=== PATIENT | female | born 1975 | race Hispanic/Latino ===

== ENCOUNTER 2020-08-12 13:03 | Emergency (ER) | payer OTHER ==
[2020-08-12] MEDS ORDERED: DIPHENHYDRAMINE 25 MG TAB/CAP ONE (14:48)
[2020-08-12] MEDS ORDERED: dexAMETHasone 10 MG/ML VIAL ONE (15:25)
[2020-08-12] MEDS ORDERED: FAMOTIDINE 20 MG TAB ONE (15:25)
--- NOTE | 2020-08-12 15:27 | EDPHYS ---
Physician Documentation [facility] Name: Catalina Whitehead Age: 45 yrs Sex: Female : 1975 Arrival Date: 08/12/2020 Time: 13:06 Bed 18 Private MD: ED Physician Fred Constantino HPI: 08/12 15:05 This 45 yrs old Female presents to ER via Ambulatory with complaints of pm1 Allergic Reaction. 15:05 The patient presents with rash, that is diffuse. Onset: The symptoms/episode pm1 began/occurred today. Associated signs and symptoms: Pertinent negatives: chest pain, dysphagia, nausea, shortness of breath, vomiting. Possible causes: hibiclens. At home the patient or guardian has treated the symptoms with Benadryl. Severity of symptoms: in the emergency department the symptoms are unchanged. The patient has not experienced similar symptoms in the past. 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 - Social history:: Smoking status: Patient denies any tobacco usage or history of. ROS: 15:05 Constitutional: Negative for fever, chills, and weight loss, ENT: Negative for injury, pm1 pain, and discharge, Neck: Negative for injury, pain, and swelling, Cardiovascular: Negative for chest pain, palpitations, and edema, Respiratory: Negative for shortness of breath, cough, wheezing, and pleuritic chest pain, Abdomen/GI: Negative for abdominal pain, nausea, vomiting, diarrhea, and constipation, Back: Negative for injury and pain, MS/Extremity: Negative for injury and deformity. 15:05 Neuro: Negative for headache, weakness, numbness, tingling, and seizure. 15:05 Skin: Positive for rash, diffusely. Exam: 15:05 Constitutional: This is a well developed, well nourished patient who is awake, alert, pm1 and in no acute distress. Head/Face: Normocephalic, atraumatic. 15:05 Back: No spinal tenderness. No costovertebral tenderness. Full range of motion. MS/ Extremity: Pulses equal, no cyanosis. Neurovascular intact. Full, normal range of motion. 15:05 Cardiovascular: Exam negative for acute changes, Rate: normal, Rhythm: regular, Pulses: no pulse deficits are appreciated. 15:05 Respiratory: Exam negative for acute changes, respiratory distress, shortness of breath. 15:05 Skin: consistent with urticaria, and is diffusely located. 15:05 Neuro: Orientation: is normal, Mentation: is normal, Motor: is normal, moves all fours. Vital Signs: 13:14 BP 129 / 62; Pulse 96; Resp 15; Temp 97.2(TE); Pulse Ox 99% on R/A; Weight 58.06 kg; ss Height 4 ft. 11 in. (149.86 cm); Pain 0/10; 16:03 BP 124 / 72; Pulse 69; Resp 16; Pulse Ox 99% ; Pain 0/10; ll1 13:14 Body Mass Index 25.85 (58.06 kg, 149.86 cm) ss MDM: 14:56 Patient medically screened. pm1 15:26 Data reviewed: vital signs. Data interpreted: Pulse oximetry: on room air is 99 %. pm1 Interpretation: normal. Counseling: I had a detailed discussion with the patient and/or guardian regarding: the historical points, exam findings, and any diagnostic results supporting the discharge/admit diagnosis, the need for outpatient follow up, to return to the emergency department if symptoms worsen or persist or if there are any questions or concerns that arise at home. Administered Medications: 14:36 Drug: Benadryl 25 mg Route: PO; ss 16:00 Follow up: Response: No adverse reaction; RASS: Alert and Calm (0) ll1 15:15 Drug: Decadron 10 mg Route: IM; Site: right gluteus; ll1 16:01 Follow up: Response: No adverse reaction; RASS: Alert and Calm (0) ll1 15:15 Drug: Pepcid 20 mg Route: PO; ll1 16:01 Follow up: Response: No adverse reaction; RASS: Alert and Calm (0) ll1 Disposition: 08/13 07:25 Co-signature as Attending Physician, Fred Constantino MD I agree with the assessment and jessica plan of care. Disposition: 08/12/20 15:27 Discharged to Home. Impression: Urticaria, unspecified. - Condition is Stable. - Discharge Instructions: Hives. - Prescriptions for Benadryl 25 mg Oral Capsule - take 1 capsule by ORAL route every 6 hours As needed; 30 tablet. Pepcid 20 mg Oral Tablet - take 1 tablet by ORAL route every 12 hours for 10 days; 20 tablet. Medrol ([place]) 4 mg Oral Tablets, Dose Pack - take 1 tablet by ORAL route as directed - follow package instructions; 1 packet. - Medication Reconciliation Form, Thank You Letter, Antibiotic Education, Prescription Opioid Use form. - Follow up: Emergency Department; When: As needed; Reason: Worsening of condition. Follow up: Private Physician; When: 2 - 3 days; Reason: Recheck today's complaints, Continuance of care, Re-evaluation by your physician. - Problem is new. - Symptoms have improved. Signatures: Fred Constantino MD MD cha Smirch, Shelby RN RN Ozzie Gray NP CLINIC ADMINISTRATOR pm1 Melody Chapa RN RN ll1 Corrections: (The following items were deleted from the chart) 08/12 16:05 15:27 08/12/2020 15:27 Discharged to Home. Impression: Urticaria, unspecified. ll1 Condition is Stable. Forms are Medication Reconciliation Form, Thank You Letter, Antibiotic Education, Prescription Opioid Use. Follow up: Emergency Department; When: As needed; Reason: Worsening of condition. Follow up: Private Physician; When: 2 - 3 days; Reason: Recheck today's complaints, Continuance of care, Re-evaluation by your physician. Problem is new. Symptoms have improved. pm1
--- NOTE | 2020-08-12 15:27 | ER ---
Nurse's Notes [facility] Name: Catalina Whitehead Age: 45 yrs Sex: Female : 1975 Arrival Date: 08/12/2020 Time: 13:06 Bed 18 Private MD: Diagnosis: Urticaria, unspecified Presentation: 08/12 13:14 Chief complaint: Patient states: Red, itchy rash that began at 1200 all over body. ss states that patient used Hibiclens at 1000 today and perhaps that may be what she is having a reaction to. Benadryl taken at 1230. Pt reports that the rash seems to be calming down some. Denies SOB. Coronavirus screen: Client denies travel out of the [place] in the last 14 days. Ebola Screen: Patient denies exposure to infectious person. Patient denies travel to an Ebola-affected area in the 21 days before illness onset. Onset: The symptoms/episode began/occurred 1.5 hour(s) ago. Anaphylaxis evaluation, no signs or symptoms of anaphylaxis were noted. Initial Sepsis Screen: Does the patient meet any 2 criteria? No. Patient's initial sepsis screen is negative. Does the patient have a suspected source of infection? No. Patient's initial sepsis screen is negative. Risk Assessment: Do you want to hurt yourself or someone else? Patient reports no desire to harm self or others. Onset of symptoms was August 12, 2020. 13:14 Method Of Arrival: Ambulatory ss 13:14 Acuity: DEBBIE 4 ss Triage Assessment: 16:04 General: Appears in no apparent distress. Behavior is calm, cooperative. 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 - Social history:: Smoking status: Patient denies any tobacco usage or history of. Screenin:03 Abuse screen: Denies threats or abuse. Nutritional screening: No deficits noted. ll1 Tuberculosis screening: No symptoms or risk factors identified. Fall Risk None identified. Total Herrera Fall Scale indicates No Risk (0-24 pts). Assessment: 16:03 Pain: Denies pain. Respiratory: Airway is patent Trachea midline Respiratory effort is ll1 even, unlabored, Respiratory pattern is regular, symmetrical, Breath sounds are clear bilaterally. Derm: Rash noted that is itchy, red, raised, urticaria, Reports rash all over, worse on back. Vital Signs: 13:14 BP 129 / 62; Pulse 96; Resp 15; Temp 97.2(TE); Pulse Ox 99% on R/A; Weight 58.06 kg; Height 4 ft. 11 in. (149.86 cm); Pain 0/10; 16:03 BP 124 / 72; Pulse 69; Resp 16; Pulse Ox 99% ; Pain 0/10; ll1 13:14 Body Mass Index 25.85 (58.06 kg, 149.86 cm) ED Course: 13:06 Patient arrived in ED. rg4 13:17 Triage completed. ss 13:18 Arm band placed on right wrist. ss 14:56 Ozzie Gray, LEE is PHCP. pm1 14:56 Fred Constantino MD is Attending Physician. pm1 15:07 Melody Chapa, KATY is Primary Nurse. ll1 16:04 Patient has correct armband on for positive identification. Bed in low position. Call ll1 light in reach. Side rails up X 1. Cardiac monitoring not applicable on this patient. 16:04 No provider procedures requiring assistance completed. Patient did not have IV access ll1 during this emergency room visit. Administered Medications: 14:36 Drug: Benadryl 25 mg Route: PO; 16:00 Follow up: Response: No adverse reaction; RASS: Alert and Calm (0) ll1 15:15 Drug: Decadron 10 mg Route: IM; Site: right gluteus; ll1 16:01 Follow up: Response: No adverse reaction; RASS: Alert and Calm (0) ll1 15:15 Drug: Pepcid 20 mg Route: PO; ll1 16:01 Follow up: Response: No adverse reaction; RASS: Alert and Calm (0) 1 Outcome: 15:27 Discharge ordered by . pm1 16:04 Discharged to home ambulatory. ll1 16:04 Condition: stable 16:04 Discharge instructions given to patient, Instructed on discharge instructions, follow up and referral plans. medication usage, Demonstrated understanding of instructions, follow-up care, medications, Prescriptions given X 3. 16:05 Patient left the ED. ll1 Signatures: Caroline Nichols RN RN Ozzie Gray, INDUSTRIAL MAINTENANCE ELECTRICIAN INDUSTRIAL MAINTENANCE ELECTRICIAN pm1 Marilee Franco rg4 Melody Chapa, RN RN ll1
[2020-08-12 17:23] VITALS: TEMP 97.2; O2SAT 99
[2020-08-12 17:24] VITALS: BP 124/72
== END 2020-08-12 16:05 | disposition home or self-care (01) ==
LOC: ER 13:03
DX: L50.9 Urticaria, unspecified (principal); Z88.1 Allergy status to other antibiotic agents; Z88.6 Allergy status to analgesic agent
CPT/HCPCS: 96372; 99283; J1100

== ENCOUNTER 2020-11-21 09:36 | Emergency (ER) | payer OTHER ==
--- OUTSIDE RECORDS SUMMARY | 2020-11-21 09:40 | XMS REPORT | Continuity of Care Document ---
:1975 Author Organization [facility] t Address [address] [place] [address] Care Team Providers Name Role Phone Lisa BULLARD Primary Care Physician Unavailable Lisa BULLARD Attending Clinician Unavailable Lisa BULLARD Admitting Clinician Unavailable Payers Payer Name Policy Type Policy Number Effective Date Expiration Date Radha [facility]VI[facility]O [facility] [id number] 2001 00:00:00 Problems This patient has no known problems. Allergies, Adverse Reactions, Alerts Allergy Allergy Status Severity Reaction(s) Onset Inactive Treating Comm ents Source Name Type Date Date Clinician ciproflo DA Active [facility] xacin 8-08 [place] 00:00: d 00 [facility] celecoxi DA Active [facility] b 8-08 [place] 00:00: d 00 [facility] HYDROCET DA Active [facility] 8[facility] [place] 00:00: d 00 [facility] ciproflo DA Active [facility] xacin 8-08 [place] HCl 00:00: d 00 [facility] Medications This patient has no known medications. Vital Signs Vital Name Observation Time Observation Value Comments Source WEIGHT 2020-06-20 13:27:00 57.9 kg Procedures This patient has no known procedures. Encounters Start End Encounter Admission Attending Care Care Encounter Source Date/Time Date/Time Type Type Clinicians Facility Department ID 2020-06-20 2020-06-20 Outpatient ROBERTH BULLARD MDA Jason/Hep/Nu [id number] 13:02:00 15:51:00 VINCE lilly 2020-06-17 2020-06-17 Outpatient ROBERTH BULLARD MDA MDA [id number] 11:28:11 11:28:11 VINCE lilly Results This patient has no known results.
--- NOTE | 2020-11-21 10:10 | ER ---
Nurse's Notes [facility] Name: Catalina Whitehead Age: 45 yrs Sex: Female : 1975 Arrival Date: 11/21/2020 Time: 09:39 Bed 26 Private MD: Diagnosis: Rash and other nonspecific skin eruption Presentation: 11/21 10:00 Chief complaint: Patient states: 11/14/2020, rash started on the nose bridge then ca1 gradually spread to cheeks. Reports a little discomfort on face. Red rash, flushed on jazmyne cheeks. Denies fever. Denies difficulty swallowing or breathing. Coronavirus screen: Client denies travel out of the [place] in the last 14 days. At this time, the client does not indicate any symptoms associated with coronavirus-19. Ebola Screen: Patient negative for fever greater than or equal to 101.5 degrees Fahrenheit, and additional compatible Ebola Virus Disease symptoms Patient denies exposure to infectious person. Patient denies travel to an Ebola-affected area in the 21 days before illness onset. No symptoms or risks identified at this time. Initial Sepsis Screen: Does the patient meet any 2 criteria? No. Patient's initial sepsis screen is negative. Does the patient have a suspected source of infection? No. Patient's initial sepsis screen is negative. Risk Assessment: Do you want to hurt yourself or someone else? Patient reports no desire to harm self or others. Onset of symptoms was November 14, 2020. 10:00 Method Of Arrival: Ambulatory ca1 10:00 Acuity: DEBBIE 4 ca1 Triage Assessment: 10:05 General: Appears in no apparent distress. comfortable, Behavior is calm, cooperative, ca1 appropriate for age. Pain: Denies pain. Neuro: Level of Consciousness is awake, alert, obeys commands, Oriented to person, place, time, situation. Derm: Skin is intact, is healthy with good turgor, Skin is pink, warm \\T\\ dry. Rash noted that is red, on right cheek and left cheek. Musculoskeletal: Circulation, motion, and sensation intact. Capillary refill < 3 seconds. 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 - Social history:: Smoking status: Patient denies any tobacco usage or history of. Screenin:06 Abuse screen: Denies threats or abuse. Denies injuries from another. Nutritional ca1 screening: No deficits noted. Tuberculosis screening: No symptoms or risk factors identified. Fall Risk None identified. Assessment: 10:06 Reassessment: see triage notes. Pain: Denies pain. ca1 10:33 Reassessment: Pt states, " I've had that shot in August, I know I will be alright. I ca1 am just going to leave now". Vital Signs: 10:00 BP 130 / 70; Pulse 93; Resp 16 S; Temp 97.7(TE); Pulse Ox 97% on R/A; Weight 60.33 kg ca1 (R); Height 4 ft. 11 in. (149.86 cm) (R); Pain 0/10; 10:00 Body Mass Index 26.86 (60.33 kg, 149.86 cm) ca1 ED Course: 09:39 Patient arrived in ED. as 09:49 Devika Hilliard, KATY is Primary Nurse. ca1 10:00 Fabienne Peralta FNP-C is PHCP. kb 10:00 Antoni Bray MD is Attending Physician. kb 10:03 Triage completed. ca1 10:05 Arm band placed on right wrist. ca1 10:06 Patient has correct armband on for positive identification. Bed in low position. Call ca1 light in reach. Side rails up X 1. Pulse ox on. NIBP on. 10:06 No provider procedures requiring assistance completed. Patient did not have IV access ca1 during this emergency room visit. Administered Medications: 10:32 Drug: SOLU-Medrol (methylPREDNISolone sodium succinate) 125 mg Route: IM; Site: left ca1 gluteus; 10:32 Follow up: Response: Medication administered at discharge. ca1 Outcome: 10:10 Discharge ordered by . kb 10:34 Discharged to home ambulatory. ca1 10:34 Condition: stable 10:34 Discharge instructions given to patient, Instructed on discharge instructions, follow up and referral plans. medication usage, Demonstrated understanding of instructions, follow-up care, medications, Prescriptions given X 2. 10:34 Patient left the ED. ca1 Signatures: Fabienne Peralta FNP-C FNP-Alisia Fuchs Cheryl, RN RN ca1
--- NOTE | 2020-11-21 10:10 | EDPHYS ---
Physician Documentation [facility] Name: Catalina Whitehead Age: 45 yrs Sex: Female : 1975 Arrival Date: 11/21/2020 Time: 09:39 Bed 26 Private MD: ED Physician Antoni Bray HPI: 11/21 10:08 This 45 yrs old Female presents to ER via Ambulatory with complaints of Rash, kb Facial Swelling. 10:08 The patient's rash thought to be caused by an unknown cause. The rash is located on the kb nose and right upper eyelid and left cheek and right cheek. The rash can be described as erythematous. Onset: The symptoms/episode began/occurred last week. Associated signs and symptoms: Pertinent positives: itching, "skin feels tight in the mornings". Severity of symptoms: At their worst the symptoms were mild moderate in the emergency department the symptoms are unchanged. Treatment given at home: OTC lotion/cream. The patient has not experienced similar symptoms in the past. The patient has not recently seen a physician. 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 - Social history:: Smoking status: Patient denies any tobacco usage or history of. ROS: 10:07 Constitutional: Negative for fever, chills, and weight loss, ENT: Negative for injury, kb pain, and discharge, Respiratory: Negative for shortness of breath, cough, wheezing, and pleuritic chest pain, Neuro: Negative for headache, weakness, numbness, tingling, and seizure. 10:07 Skin: Positive for rash, swelling, of the right upper eyelid, right cheek, nose and left cheek. Exam: 10:07 Constitutional: This is a well developed, well nourished patient who is awake, alert, kb and in no acute distress. Head/Face: Normocephalic, atraumatic. Respiratory: Respirations even and unlabored. No increased work of breathing, no retractions or nasal flaring. MS/ Extremity: Pulses equal, no cyanosis. Neurovascular intact. Full, normal range of motion. Neuro: Awake and alert, GCS 15, oriented to person, place, time, and situation. Moves all extremities. Normal gait. 10:07 Skin: rash a moderate rash is noted, rash can be described as erythematous, on the nose and right upper eyelid and left cheek and right cheek. Vital Signs: 10:00 BP 130 / 70; Pulse 93; Resp 16 S; Temp 97.7(TE); Pulse Ox 97% on R/A; Weight 60.33 kg ca1 (R); Height 4 ft. 11 in. (149.86 cm) (R); Pain 0/10; 10:00 Body Mass Index 26.86 (60.33 kg, 149.86 cm) ca1 MDM: 10:00 Patient medically screened. kb 10:07 Data reviewed: vital signs, nurses notes. Data interpreted: Pulse oximetry: on room air kb is 97 %. Interpretation: normal. 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 10:12 ED course: Educated to follow up with dermatology. Discussed possibility of rosacea. kb Administered Medications: 10:32 Drug: SOLU-Medrol (methylPREDNISolone sodium succinate) 125 mg Route: IM; Site: left ca1 gluteus; 10:32 Follow up: Response: Medication administered at discharge. ca1 Disposition: 16:05 Co-signature as Attending Physician, Antoni Bray MD I agree with the assessment and kdr plan of care. Disposition: 11/21/20 10:10 Discharged to Home. Impression: Rash and other nonspecific skin eruption. - Condition is Stable. - Discharge Instructions: Rash, [id number], Rosacea, [id number]. - Prescriptions for Prednisone 20 mg Oral Tablet - take 1 tablet by ORAL route once daily for 5 days; 5 tablet. Doxycycline Hyclate 100 mg Oral Tablet - take 1 tablet by ORAL route every 12 hours; 20 tablet. - Medication Reconciliation Form, Thank You Letter, Antibiotic Education, Prescription Opioid Use form. - Follow up: Emergency Department; When: As needed; Reason: Worsening of condition. Follow up: Private Physician; When: 2 - 3 days; Reason: Recheck today's complaints, Continuance of care, Re-evaluation by your physician. Signatures: Fabienne Peralta, KIMBERLY-C JUNIOR ACCOUNT EXECUTIVE-Antoni De Los Santos MD MD [facility] Devika Hilliard RN RN ca1 Corrections: (The following items were deleted from the chart) 10:34 10:10 11/21/2020 10:10 Discharged to Home. Impression: Rash and other nonspecific skin ca1 eruption. Condition is Stable. Forms are Medication Reconciliation Form, Thank You Letter, Antibiotic Education, Prescription Opioid Use. Follow up: Emergency Department; When: As needed; Reason: Worsening of condition. Follow up: Private Physician; When: 2 - 3 days; Reason: Recheck today's complaints, Continuance of care, Re-evaluation by your physician. kb
[2020-11-21 10:45] VITALS: BP 130/70; TEMP 97.7; O2SAT 97
[2020-11-21] MEDS ORDERED: METHYLPREDNISOLONE 125 MG INJ ONE (10:48)
== END 2020-11-21 10:34 | disposition home or self-care (01) ==
LOC: ER 09:36
DX: R21 Rash and other nonspecific skin eruption (principal)
CPT/HCPCS: 96372; 99283; J2930

== ENCOUNTER 2023-01-19 23:12 | Emergency (ER) | payer OTHER ==
--- OUTSIDE RECORDS SUMMARY | 2023-01-19 23:16 | XMS REPORT | Continuity of Care Document ---
:1975 Author Organization [facility] t Address [address] [place] [id number] Care Team Providers Name Role Phone Mckenna Jones MD Primary Care Physician [phone] TRAVIS VÁZQUEZ Attending Clinician Unavailable Moises Cruz MD Attending Clinician Jarrett Asencio Attending Clinician Unavailable VINCE BULLARD Attending Clinician Unavailable TRAVIS VÁZQUEZ Admitting Clinician Unavailable Jarrett Asencio Admitting Clinician Unavailable VINCE BULLARD Admitting Clinician Unavailable Physician, No Primary or Family Admitting Clinician Unavaila ble Payers Payer Name Policy Type Policy Number Effective Date Expiration Date Radha TREVIÑO O [id number] 2001 00:00:00 Problems This patient has no known problems. Allergies, Adverse Reactions, Alerts Allergy Allergy Status Severity Reaction(s) Onset Inactive Treating Comm ents Source Name Type Date Date Clinician NIACIN DRUG Active Low Other 2021-0 MD INGREDI 4-07 Anderso 00:00: n 00 NIACIN DRUG Active Low Other 2021-0 MD INGREDI 4-07 Anderso 00:00: n 00 NIACIN DRUG Active Low Other 2021-0 MD INGREDI 4-07 Anderso 00:00: n 00 NIACIN DRUG Active Low Other 2021-0 MD INGREDI 4-07 Anderso 00:00: n 00 NIACIN DRUG Active Low Other 2022-0 MD INGREDI 4-07 Anderso 00:00: n 00 NIACIN DRUG Active Low Other 2022-0 MD INGREDI 4-07 Anderso 00:00: n 00 NIACIN DRUG Active Low Other 2022-0 MD INGREDI 4-07 Anderso 00:00: n 00 NIACIN DRUG Active Low Other 2022-0 MD INGREDI 4-07 Anderso 00:00: n 00 NIACIN DRUG Active Low Other 2022-0 MD INGREDI 4-07 Anderso 00:00: n 00 NIACIN DRUG Active Low Other 2022-0 MD INGREDI 4-07 Anderso 00:00: n 00 NIACIN DRUG Active Low Other 2022-0 MD INGREDI 4-07 Anderso 00:00: n 00 NIACIN DRUG Active Low Other 2022-0 MD INGREDI 4-07 Anderso 00:00: n 00 NIACIN DRUG Active Low Other 2022-0 MD INGREDI 4-07 Anderso 00:00: n 00 NIACIN DRUG Active Low Other 2022-0 MD INGREDI 4-07 Anderso 00:00: n 00 Niacin Propensi Active Other (See 202-0 Burning Met hodi ty to Comments) -[address] adverse 00:00: on Hospita reaction 00 joints.Bu l s to rning drug sensation on joints. NIACIN DRUG Active Low Other 2-0 MD INGREDI 4-07 Anderso 00:00: n 00 NIACIN DRUG Active Low Other 2-0 MD INGREDI 4-07 Anderso 00:00: n 00 NIACIN DRUG Active Low Other 2022-0 MD INGREDI 4-07 Anderso 00:00: n 00 NIACIN DRUG Active Low Other 2022-0 MD INGREDI 4-07 Anderso 00:00: n 00 NIACIN DRUG Active Low Other 2022-0 MD INGREDI 4-07 Anderso 00:00: n 00 NIACIN DRUG Active Low Other 2022-0 MD INGREDI 4-07 Anderso 00:00: n 00 NIACIN DRUG Active Low Other 2022-0 MD INGREDI 4-07 Anderso 00:00: n 00 NIACIN DRUG Active Low Other 2022-0 MD INGREDI 4-07 Anderso 00:00: n 00 NIACIN DRUG Active Low Other 2022-0 MD INGREDI 4-07 Anderso 00:00: n 00 NIACIN DRUG Active Low Other 2022-0 MD INGREDI 4-07 Anderso 00:00: n 00 NIACIN DRUG Active Low Other 2022-0 MD INGREDI 4-07 Anderso 00:00: n 00 NIACIN DRUG Active Low Other 2022-0 MD INGREDI 4-07 Anderso 00:00: n 00 NIACIN DRUG Active Low Other 2022-0 MD INGREDI 4-07 Anderso 00:00: n 00 NIACIN DRUG Active Low Other 2022-0 MD INGREDI 4-07 Anderso 00:00: n 00 NIACIN DRUG Active Low Other 2022-0 MD INGREDI 4-07 Anderso 00:00: n 00 NIACIN DRUG Active Low Other 2022-0 MD INGREDI 4-07 Anderso 00:00: n 00 NIACIN DRUG Active Low Other 2022-0 MD INGREDI 4-07 Anderso 00:00: n 00 NIACIN DRUG Active Low Other 2-0 MD INGREDI 4-07 Anderso 00:00: n 00 NIACIN DRUG Active Low Other 2-0 MD INGREDI 4-07 Anderso 00:00: n 00 NIACIN DRUG Active Low Other 2-0 MD INGREDI 4-07 Anderso 00:00: n 00 NIACIN DRUG Active Low Other 2-0 MD INGREDI 4-07 Anderso 00:00: n 00 NIACIN DRUG Active Low Other 2-0 MD INGREDI 4-07 Anderso 00:00: n 00 NIACIN DRUG Active Low Other 2-0 MD INGREDI 4-07 Anderso 00:00: n 00 NIACIN DRUG Active Low Other 2022-0 MD INGREDI 4-07 Anderso 00:00: n 00 NIACIN DRUG Active Low Other 2022-0 MD INGREDI 4-07 Anderso 00:00: n 00 NIACIN DRUG Active Low Other 2022-0 MD INGREDI 4-07 Anderso 00:00: n 00 NIACIN DRUG Active Low Other 2022-0 MD INGREDI 4-07 Anderso 00:00: n 00 NIACIN DRUG Active Low Other 2022-0 MD INGREDI 4-07 Anderso 00:00: n 00 CHLORHEX DRUG Active High Itching 2021-0 MD IDINE INGREDI 1-18 Anderso GLUCONAT 00:00: n E 00 CHLORHEX DRUG Active High Itching 2021-0 MD IDINE INGREDI 1-18 Anderso GLUCONAT 00:00: n E 00 CHLORHEX DRUG Active High Itching 2021-0 MD IDINE INGREDI 1-18 Anderso GLUCONAT 00:00: n E 00 CHLORHEX DRUG Active High Itching 2021-0 MD IDINE INGREDI 1-18 Anderso GLUCONAT 00:00: n E 00 CHLORHEX DRUG Active High Itching 2021-0 MD IDINE INGREDI 1-18 Anderso GLUCONAT 00:00: n E 00 CHLORHEX DRUG Active High Itching 2021-0 MD IDINE INGREDI 1-18 Anderso GLUCONAT 00:00: n E 00 CHLORHEX DRUG Active High Itching 2021-0 MD IDINE INGREDI 1-18 Anderso GLUCONAT 00:00: n E 00 CHLORHEX DRUG Active High Itching 2021-0 MD IDINE INGREDI 1-18 Anderso GLUCONAT 00:00: n E 00 CHLORHEX DRUG Active High Itching 2021-0 MD IDINE INGREDI 1-18 Anderso GLUCONAT 00:00: n E 00 CHLORHEX DRUG Active High Itching 2021-0 MD IDINE INGREDI 1-18 Anderso GLUCONAT 00:00: n E 00 CHLORHEX DRUG Active High Itching 2021-0 MD IDINE INGREDI 1-18 Anderso GLUCONAT 00:00: n E 00 CHLORHEX DRUG Active High Itching 2021-0 MD IDINE INGREDI 1-18 Anderso GLUCONAT 00:00: n E 00 CHLORHEX DRUG Active High Itching 2021-0 MD IDINE INGREDI 1-18 Anderso GLUCONAT 00:00: n E 00 CHLORHEX DRUG Active High Itching 2021-0 MD IDINE INGREDI 1-18 Anderso GLUCONAT 00:00: n E 00 CHLORHEX DRUG Active High Itching 2021-0 MD IDINE INGREDI 1-18 Anderso GLUCONAT 00:00: n E 00 CHLORHEX DRUG Active High Itching 2021-0 MD IDINE INGREDI 1-18 Anderso GLUCONAT 00:00: n E 00 CHLORHEX DRUG Active High Itching 2021-0 MD IDINE INGREDI 1-18 Anderso GLUCONAT 00:00: n E 00 CHLORHEX DRUG Active High Itching 2021-0 MD IDINE INGREDI 1-18 Anderso GLUCONAT 00:00: n E 00 CHLORHEX DRUG Active High Itching 2021-0 MD IDINE INGREDI 1-18 Anderso GLUCONAT 00:00: n E 00 CHLORHEX DRUG Active High Itching 2021-0 MD IDINE INGREDI 1-18 Anderso GLUCONAT 00:00: n E 00 CHLORHEX DRUG Active High Itching 2021-0 MD IDINE INGREDI 1-18 Anderso GLUCONAT 00:00: n E 00 CHLORHEX DRUG Active High Itching 2021-0 MD IDINE INGREDI 1-18 Anderso GLUCONAT 00:00: n E 00 CHLORHEX DRUG Active High Itching 2021-0 MD IDINE INGREDI 1-18 Anderso GLUCONAT 00:00: n E 00 CHLORHEX DRUG Active High Itching 2021-0 MD IDINE INGREDI 1-18 Anderso GLUCONAT 00:00: n E 00 CHLORHEX DRUG Active High Itching 2021-0 MD IDINE INGREDI 1-18 Anderso GLUCONAT 00:00: n E 00 CHLORHEX DRUG Active High Itching 2021-0 MD IDINE INGREDI 1-18 Anderso GLUCONAT 00:00: n E 00 CHLORHEX DRUG Active High Itching 2021-0 MD IDINE INGREDI 1-18 Anderso GLUCONAT 00:00: n E 00 CHLORHEX DRUG Active High Itching 2021-0 MD IDINE INGREDI 1-18 Anderso GLUCONAT 00:00: n E 00 CHLORHEX DRUG Active High Itching 2021-0 MD IDINE INGREDI 1-18 Anderso GLUCONAT 00:00: n E 00 CHLORHEX DRUG Active High Itching 2021-0 MD IDINE INGREDI 1-18 Anderso GLUCONAT 00:00: n E 00 CHLORHEX DRUG Active High Itching 2021-0 MD IDINE INGREDI 1-18 Anderso GLUCONAT 00:00: n E 00 CHLORHEX DRUG Active High Itching 2021-0 MD IDINE INGREDI 1-18 Anderso GLUCONAT 00:00: n E 00 CHLORHEX DRUG Active High Itching 2021-0 MD IDINE INGREDI 1-18 Anderso GLUCONAT 00:00: n E 00 CHLORHEX DRUG Active High Itching 2021-0 MD IDINE INGREDI 1-18 Anderso GLUCONAT 00:00: n E 00 CHLORHEX DRUG Active High Itching 2021-0 MD IDINE INGREDI 1-18 Anderso GLUCONAT 00:00: n E 00 CHLORHEX DRUG Active High Itching 2021-0 MD IDINE INGREDI 1-18 Anderso GLUCONAT 00:00: n E 00 CHLORHEX DRUG Active High Itching 2021-0 MD IDINE INGREDI 1-18 Anderso GLUCONAT 00:00: n E 00 CHLORHEX DRUG Active High Itching 2021-0 MD IDINE INGREDI 1-18 Anderso GLUCONAT 00:00: n E 00 CHLORHEX DRUG Active High Itching 2021-0 MD IDINE INGREDI 1-18 Anderso GLUCONAT 00:00: n E 00 CHLORHEX DRUG Active High Itching 2021-0 MD IDINE INGREDI 1-18 Anderso GLUCONAT 00:00: n E 00 CHLORHEX DRUG Active High Itching 2021-0 MD IDINE INGREDI 1-18 Anderso GLUCONAT 00:00: n E 00 CHLORHEX DRUG Active High Itching 2021-0 MD IDINE INGREDI 1-18 Anderso GLUCONAT 00:00: n E 00 Chlorhex Propensi Active Itching 2020-0 Metho di idine ty to 08-28 st adverse 00:00: Hospita reaction 00 l s to drug Hydrocod Propensi Active Other (See 2017-0 Me thodi one-Acet ty to Comments) 08-29 st aminophe adverse 00:00: Hospita n reaction 00 l s to drug CELECOXI DRUG Active Med Rash 2015-0 B INGREDI 2-05 Anderso 00:00: n 00 CIPROFLO DRUG Active Low Nausea 2015-0 MD AKHTAR INGREDI 2-05 Anderso 00:00: n 00 HYDROCOD DRUG Active Low Hives 2015-0 MD PATRICIO INGREDI 2-05 Anderso 00:00: n 00 PROPOXYP DRUG Active Low Hives 2015-0 MD HENE 2-05 Anderso N-ACETAM 00:00: n INOPHEN 00 CELECOXI DRUG Active Med Rash 2016-0 MD B INGREDI 2-05 Anderso 00:00: n 00 CIPROFLO DRUG Active Low Nausea 2016-0 MD XACIN INGREDI 2-05 Anderso 00:00: n 00 HYDROCOD DRUG Active Low Hives 2015- MD ONE INGREDI 2-05 Anderso 00:00: n 00 PROPOXYP DRUG Active Low Hives 2015-0 MD HENE 2-05 Anderso N-ACETAM 00:00: n INOPHEN 00 CELECOXI DRUG Active Med Rash 2015- MD B INGREDI 2-05 Anderso 00:00: n 00 CIPROFLO DRUG Active Low Nausea 2015- MD XACIN INGREDI 2-05 Anderso 00:00: n 00 HYDROCOD DRUG Active Low Hives 2015- MD ONE INGREDI 2-05 Anderso 00:00: n 00 PROPOXYP DRUG Active Low Hives 2015-0 MD HENE 2-05 Anderso N-ACETAM 00:00: n INOPHEN 00 CELECOXI DRUG Active Med Rash 2016- MD B INGREDI 2-05 Anderso 00:00: n 00 CIPROFLO DRUG Active Low Nausea 2016-0 MD XACIN INGREDI 2-05 Anderso 00:00: n 00 HYDROCOD DRUG Active Low Hives 2015-0 MD ONE INGREDI 2-05 Anderso 00:00: n 00 PROPOXYP DRUG Active Low Hives 2015-0 MD HENE 2-05 Anderso N-ACETAM 00:00: n INOPHEN 00 CELECOXI DRUG Active Med Rash 2016-0 MD B INGREDI 2-05 Anderso 00:00: n 00 CIPROFLO DRUG Active Low Nausea 2015-0 MD XACIN INGREDI 2-05 Anderso 00:00: n 00 HYDROCOD DRUG Active Low Hives 2015-0 MD ONE INGREDI 2-05 Anderso 00:00: n 00 PROPOXYP DRUG Active Low Hives 2015-0 MD HENE 2-05 Anderso N-ACETAM 00:00: n INOPHEN 00 CELECOXI DRUG Active Med Rash 2016-0 MD B INGREDI 2-05 Anderso 00:00: n 00 CIPROFLO DRUG Active Low Nausea 2016-0 MD XACIN INGREDI 2-05 Anderso 00:00: n 00 HYDROCOD DRUG Active Low Hives 2016-0 MD ONE INGREDI 2-05 Anderso 00:00: n 00 PROPOXYP DRUG Active Low Hives 2015-0 MD HENE 2-05 Anderso N-ACETAM 00:00: n INOPHEN 00 CELECOXI DRUG Active Med Rash 2016-0 MD B INGREDI 2-05 Anderso 00:00: n 00 CIPROFLO DRUG Active Low Nausea 2016-0 MD XACIN INGREDI 2-05 Anderso 00:00: n 00 HYDROCOD DRUG Active Low Hives 2015-0 MD ONE INGREDI 2-05 Anderso 00:00: n 00 PROPOXYP DRUG Active Low Hives 2015-0 MD HENE 2-05 Anderso N-ACETAM 00:00: n INOPHEN 00 CELECOXI DRUG Active Med Rash 2016-0 MD B INGREDI 2-05 Anderso 00:00: n 00 CIPROFLO DRUG Active Low Nausea 2015-0 MD XACIN INGREDI 2-05 Anderso 00:00: n 00 HYDROCOD DRUG Active Low Hives 2015-0 MD ONE INGREDI 2-05 Anderso 00:00: n 00 PROPOXYP DRUG Active Low Hives 2015-0 MD HENE 2-05 Anderso N-ACETAM 00:00: n INOPHEN 00 CELECOXI DRUG Active Med Rash 2016-0 MD B INGREDI 2-05 Anderso 00:00: n 00 CIPROFLO DRUG Active Low Nausea 2016-0 MD XACIN INGREDI 2-05 Anderso 00:00: n 00 HYDROCOD DRUG Active Low Hives 2015-0 MD ONE INGREDI 2-05 Anderso 00:00: n 00 PROPOXYP DRUG Active Low Hives 2015-0 MD HENE 2-05 Anderso N-ACETAM 00:00: n INOPHEN 00 CELECOXI DRUG Active Med Rash 2016-0 MD B INGREDI 2-05 Anderso 00:00: n 00 CIPROFLO DRUG Active Low Nausea 2015-0 MD XACIN INGREDI 2-05 Anderso 00:00: n 00 HYDROCOD DRUG Active Low Hives 2015-0 MD ONE INGREDI 2-05 Anderso 00:00: n 00 PROPOXYP DRUG Active Low Hives 2015-0 MD HENE 2-05 Anderso N-ACETAM 00:00: n INOPHEN 00 CELECOXI DRUG Active Med Rash 2016-0 MD B INGREDI 2-05 Anderso 00:00: n 00 CELECOXI DRUG Active Med Rash 2016-0 MD B INGREDI 2-05 Anderso 00:00: n 00 CIPROFLO DRUG Active Low Nausea 2016-0 MD XACIN INGREDI 2-05 Anderso 00:00: n 00 HYDROCOD DRUG Active Low Hives 2015-0 MD ONE INGREDI 2-05 Anderso 00:00: n 00 PROPOXYP DRUG Active Low Hives 2015- MD HENE 2-05 Anderso N-ACETAM 00:00: n INOPHEN 00 CELECOXI DRUG Active Med Rash 2015- MD B INGREDI 2-05 Anderso 00:00: n 00 CIPROFLO DRUG Active Low Nausea 2015-0 MD XACIN INGREDI 2-05 Anderso 00:00: n 00 HYDROCOD DRUG Active Low Hives 2015- MD ONE INGREDI 2-05 Anderso 00:00: n 00 CIPROFLO DRUG Active Low Nausea 2015-0 MD XACIN INGREDI 2-05 Anderso 00:00: n 00 PROPOXYP DRUG Active Low Hives 2015-0 MD HENE 2-05 Anderso N-ACETAM 00:00: n INOPHEN 00 CELECOXI DRUG Active Med Rash 2016-0 MD B INGREDI 2-05 Anderso 00:00: n 00 CIPROFLO DRUG Active Low Nausea 2015-0 MD XACIN INGREDI 2-05 Anderso 00:00: n 00 HYDROCOD DRUG Active Low Hives 2015-0 MD ONE INGREDI 2-05 Anderso 00:00: n 00 PROPOXYP DRUG Active Low Hives 2015-0 MD HENE 2-05 Anderso N-ACETAM 00:00: n INOPHEN 00 CELECOXI DRUG Active Med Rash 2016-0 MD B INGREDI 2-05 Anderso 00:00: n 00 HYDROCOD DRUG Active Low Hives 2015-0 MD ONE INGREDI 2-05 Anderso 00:00: n 00 CIPROFLO DRUG Active Low Nausea 2015-0 MD XACIN INGREDI 2-05 Anderso 00:00: n 00 HYDROCOD DRUG Active Low Hives 2015-0 MD ONE INGREDI 2-05 Anderso 00:00: n 00 PROPOXYP DRUG Active Low Hives 2015-0 MD HENE 2-05 Anderso N-ACETAM 00:00: n INOPHEN 00 CELECOXI DRUG Active Med Rash 2016-0 MD B INGREDI 2-05 Anderso 00:00: n 00 CIPROFLO DRUG Active Low Nausea 2015- MD XACIN INGREDI 2-05 Anderso 00:00: n 00 HYDROCOD DRUG Active Low Hives 2015- MD ONE INGREDI 2-05 Anderso 00:00: n 00 PROPOXYP DRUG Active Low Hives 2015- MD HENE 2-05 Anderso N-ACETAM 00:00: n INOPHEN 00 CELECOXI DRUG Active Med Rash 2015- MD B INGREDI 2-05 Anderso 00:00: n 00 CIPROFLO DRUG Active Low Nausea 2015- MD XACIN INGREDI 2-05 Anderso 00:00: n 00 HYDROCOD DRUG Active Low Hives 2015- MD ONE INGREDI 2-05 Anderso 00:00: n 00 PROPOXYP DRUG Active Low Hives 2015- MD HENE 2-05 Anderso N-ACETAM 00:00: n INOPHEN 00 CELECOXI DRUG Active Med Rash 2015- MD B INGREDI 2-05 Anderso 00:00: n 00 CIPROFLO DRUG Active Low Nausea 2015- MD XACIN INGREDI 2-05 Anderso 00:00: n 00 HYDROCOD DRUG Active Low Hives 2015- MD ONE INGREDI 2-05 Anderso 00:00: n 00 PROPOXYP DRUG Active Low Hives 2015-0 MD HENE 2-05 Anderso N-ACETAM 00:00: n INOPHEN 00 PROPOXYP DRUG Active Low Hives 2015- MD HENE 2-05 Anderso N-ACETAM 00:00: n INOPHEN 00 CELECOXI DRUG Active Med Rash 2015- MD B INGREDI 2-05 Anderso 00:00: n 00 CIPROFLO DRUG Active Low Nausea 2015- MD XACIN INGREDI 2-05 Anderso 00:00: n 00 HYDROCOD DRUG Active Low Hives 2015- MD ONE INGREDI 2-05 Anderso 00:00: n 00 PROPOXYP DRUG Active Low Hives 2016-0 MD HENE 2-05 Anderso N-ACETAM 00:00: n INOPHEN 00 CELECOXI DRUG Active Med Rash 2016-0 MD B INGREDI 2-05 Anderso 00:00: n 00 CIPROFLO DRUG Active Low Nausea 2016-0 MD XACIN INGREDI 2-05 Anderso 00:00: n 00 HYDROCOD DRUG Active Low Hives 2016-0 MD ONE INGREDI 2-05 Anderso 00:00: n 00 PROPOXYP DRUG Active Low Hives 2015-0 MD HENE 2-05 Anderso N-ACETAM 00:00: n INOPHEN 00 CELECOXI DRUG Active Med Rash 2016-0 MD B INGREDI 2-05 Anderso 00:00: n 00 CIPROFLO DRUG Active Low Nausea 2015-0 MD XACIN INGREDI 2-05 Anderso 00:00: n 00 HYDROCOD DRUG Active Low Hives 2015-0 MD ONE INGREDI 2-05 Anderso 00:00: n 00 PROPOXYP DRUG Active Low Hives 2015-0 MD HENE 2-05 Anderso N-ACETAM 00:00: n INOPHEN 00 CELECOXI DRUG Active Med Rash 2016-0 MD B INGREDI 2-05 Anderso 00:00: n 00 CELECOXI DRUG Active Med Rash 2016-0 MD B INGREDI 2-05 Anderso 00:00: n 00 CIPROFLO DRUG Active Low Nausea 2016-0 MD XACIN INGREDI 2-05 Anderso 00:00: n 00 HYDROCOD DRUG Active Low Hives 2015-0 MD ONE INGREDI 2-05 Anderso 00:00: n 00 PROPOXYP DRUG Active Low Hives 2015-0 MD HENE 2-05 Anderso N-ACETAM 00:00: n INOPHEN 00 CELECOXI DRUG Active Med Rash 2016-0 MD B INGREDI 2-05 Anderso 00:00: n 00 CIPROFLO DRUG Active Low Nausea 2016-0 MD XACIN INGREDI 2-05 Anderso 00:00: n 00 HYDROCOD DRUG Active Low Hives 2015-0 MD ONE INGREDI 2-05 Anderso 00:00: n 00 CIPROFLO DRUG Active Low Nausea 2016-0 MD XACIN INGREDI 2-05 Anderso 00:00: n 00 PROPOXYP DRUG Active Low Hives 2015-0 MD HENE 2-05 Anderso N-ACETAM 00:00: n INOPHEN 00 CELECOXI DRUG Active Med Rash 2016-0 MD B INGREDI 2-05 Anderso 00:00: n 00 CIPROFLO DRUG Active Low Nausea 2016-0 MD XACIN INGREDI 2-05 Anderso 00:00: n 00 HYDROCOD DRUG Active Low Hives 2015- MD ONE INGREDI 2-05 Anderso 00:00: n 00 PROPOXYP DRUG Active Low Hives 2015-0 MD HENE 2-05 Anderso N-ACETAM 00:00: n INOPHEN 00 CELECOXI DRUG Active Med Rash 2016- MD B INGREDI 2-05 Anderso 00:00: n 00 HYDROCOD DRUG Active Low Hives 2015- MD ONE INGREDI 2-05 Anderso 00:00: n 00 CIPROFLO DRUG Active Low Nausea 2015- MD XACIN INGREDI 2-05 Anderso 00:00: n 00 HYDROCOD DRUG Active Low Hives 2015- MD ONE INGREDI 2-05 Anderso 00:00: n 00 PROPOXYP DRUG Active Low Hives 2015- MD HENE 2-05 Anderso N-ACETAM 00:00: n INOPHEN 00 CELECOXI DRUG Active Med Rash 2015- MD B INGREDI 2-05 Anderso 00:00: n 00 CIPROFLO DRUG Active Low Nausea 2015-0 MD XACIN INGREDI 2-05 Anderso 00:00: n 00 HYDROCOD DRUG Active Low Hives 2015- MD ONE INGREDI 2-05 Anderso 00:00: n 00 PROPOXYP DRUG Active Low Hives 2015-0 MD HENE 2-05 Anderso N-ACETAM 00:00: n INOPHEN 00 CELECOXI DRUG Active Med Rash 2016-0 MD B INGREDI 2-05 Anderso 00:00: n 00 CIPROFLO DRUG Active Low Nausea 2015-0 MD XACIN INGREDI 2-05 Anderso 00:00: n 00 HYDROCOD DRUG Active Low Hives 2015-0 MD ONE INGREDI 2-05 Anderso 00:00: n 00 PROPOXYP DRUG Active Low Hives 2015-0 MD HENE 2-05 Anderso N-ACETAM 00:00: n INOPHEN 00 CELECOXI DRUG Active Med Rash 2016-0 MD B INGREDI 2-05 Anderso 00:00: n 00 CIPROFLO DRUG Active Low Nausea 2016- MD XACIN INGREDI 2-05 Anderso 00:00: n 00 HYDROCOD DRUG Active Low Hives 2015-0 MD ONE INGREDI 2-05 Anderso 00:00: n 00 PROPOXYP DRUG Active Low Hives 2015- MD HENE 2-05 Anderso N-ACETAM 00:00: n INOPHEN 00 PROPOXYP DRUG Active Low Hives 2015- MD HENE 2-05 Anderso N-ACETAM 00:00: n INOPHEN 00 CELECOXI DRUG Active Med Rash 2015- MD B INGREDI 2-05 Anderso 00:00: n 00 CIPROFLO DRUG Active Low Nausea 2015- MD XACIN INGREDI 2-05 Anderso 00:00: n 00 HYDROCOD DRUG Active Low Hives 2015- MD ONE INGREDI 2-05 Anderso 00:00: n 00 PROPOXYP DRUG Active Low Hives 2015- MD HENE 2-05 Anderso N-ACETAM 00:00: n INOPHEN 00 CELECOXI DRUG Active Med Rash 2015- MD B INGREDI 2-05 Anderso 00:00: n 00 CIPROFLO DRUG Active Low Nausea 2015- MD XACIN INGREDI 2-05 Anderso 00:00: n 00 HYDROCOD DRUG Active Low Hives 2015- MD ONE INGREDI 2-05 Anderso 00:00: n 00 PROPOXYP DRUG Active Low Hives 2015- MD HENE 2-05 Anderso N-ACETAM 00:00: n INOPHEN 00 CELECOXI DRUG Active Med Rash 2016-0 MD B INGREDI 2-05 Anderso 00:00: n 00 CIPROFLO DRUG Active Low Nausea 2015- MD XACIN INGREDI 2-05 Anderso 00:00: n 00 HYDROCOD DRUG Active Low Hives 2015- MD ONE INGREDI 2-05 Anderso 00:00: n 00 PROPOXYP DRUG Active Low Hives 2015- MD HENE 2-05 Anderso N-ACETAM 00:00: n INOPHEN 00 CELECOXI DRUG Active Med Rash 2015- MD B INGREDI 2-05 Anderso 00:00: n 00 CIPROFLO DRUG Active Low Nausea 2016-0 MD XACIN INGREDI 2-05 Anderso 00:00: n 00 HYDROCOD DRUG Active Low Hives 2015-0 MD ONE INGREDI 2-05 Anderso 00:00: n 00 PROPOXYP DRUG Active Low Hives 2015-0 MD HENE 2-05 Anderso N-ACETAM 00:00: n INOPHEN 00 CELECOXI DRUG Active Med Rash 2016-0 MD B INGREDI 2-05 Anderso 00:00: n 00 CIPROFLO DRUG Active Low Nausea 2015-0 MD XACIN INGREDI 2-05 Anderso 00:00: n 00 HYDROCOD DRUG Active Low Hives 2015- MD ONE INGREDI 2-05 Anderso 00:00: n 00 PROPOXYP DRUG Active Low Hives 2015-0 MD HENE 2-05 Anderso N-ACETAM 00:00: n INOPHEN 00 CELECOXI DRUG Active Med Rash 2015- MD B INGREDI 2-05 Anderso 00:00: n 00 CIPROFLO DRUG Active Low Nausea 2015-0 MD XACIN INGREDI 2-05 Anderso 00:00: n 00 HYDROCOD DRUG Active Low Hives 2015-0 MD ONE INGREDI 2-05 Anderso 00:00: n 00 PROPOXYP DRUG Active Low Hives 2015-0 MD HENE 2-05 Anderso N-ACETAM 00:00: n INOPHEN 00 CELECOXI DRUG Active Med Rash 2016-0 MD B INGREDI 2-05 Anderso 00:00: n 00 CIPROFLO DRUG Active Low Nausea 2015-0 MD XACIN INGREDI 2-05 Anderso 00:00: n 00 HYDROCOD DRUG Active Low Hives 2015-0 MD ONE INGREDI 2-05 Anderso 00:00: n 00 PROPOXYP DRUG Active Low Hives 2015-0 MD HENE 2-05 Anderso N-ACETAM 00:00: n INOPHEN 00 CELECOXI DRUG Active Med Rash 2016-0 MD B INGREDI 2-05 Anderso 00:00: n 00 CIPROFLO DRUG Active Low Nausea 2015-0 MD XACIN INGREDI 2-05 Anderso 00:00: n 00 HYDROCOD DRUG Active Low Hives 2015-0 MD ONE INGREDI 2-05 Anderso 00:00: n 00 PROPOXYP DRUG Active Low Hives 2015-0 MD HENE 2-05 Anderso N-ACETAM 00:00: n INOPHEN 00 CELECOXI DRUG Active Med Rash 2016- MD B INGREDI 2-05 Anderso 00:00: n 00 CIPROFLO DRUG Active Low Nausea 2016-0 MD XACIN INGREDI 2-05 Anderso 00:00: n 00 HYDROCOD DRUG Active Low Hives 2015- MD ONE INGREDI 2-05 Anderso 00:00: n 00 PROPOXYP DRUG Active Low Hives 2015- MD HENE 2-05 Anderso N-ACETAM 00:00: n INOPHEN 00 CELECOXI DRUG Active Med Rash 2015- MD B INGREDI 2-05 Anderso 00:00: n 00 CIPROFLO DRUG Active Low Nausea 2015- MD XACIN INGREDI 2-05 Anderso 00:00: n 00 HYDROCOD DRUG Active Low Hives 2015- MD ONE INGREDI 2-05 Anderso 00:00: n 00 PROPOXYP DRUG Active Low Hives 2015- MD HENE 2-05 Anderso N-ACETAM 00:00: n INOPHEN 00 CELECOXI DRUG Active Med Rash 2015- MD B INGREDI 2-05 Anderso 00:00: n 00 CIPROFLO DRUG Active Low Nausea 2015- MD XACIN INGREDI 2-05 [facility] 00:00: n 00 HYDROCOD DRUG Active Low Hives 2015- MD ONE INGREDI 2-05 Anderso 00:00: n 00 PROPOXYP DRUG Active Low Hives 2015- MD HENE 2-05 Anderso N-ACETAM 00:00: n INOPHEN 00 CELECOXI DRUG Active Med Rash 2016-0 MD B INGREDI 2-05 Anderso 00:00: n 00 CIPROFLO DRUG Active Low Nausea 2015- MD XACIN INGREDI 2-05 [facility] 00:00: n 00 HYDROCOD DRUG Active Low Hives 2015- MD ONE INGREDI 2-05 Anderso 00:00: n 00 PROPOXYP DRUG Active Low Hives 2015- MD HENE 2-05 Anderso N-ACETAM 00:00: n INOPHEN 00 CELECOXI DRUG Active Med Rash 2015- MD B INGREDI 2-05 Anderso 00:00: n 00 CIPROFLO DRUG Active Low Nausea MD AKHTAR INGREDI 09-15 Anderso 00:00: n 00 HYDROCOD DRUG Active Low Hives SHENG INGREDI 09-15 Anderso 00:00: n 00 PROPOXYP DRUG Active Low Hives MD IVERSON 09-15 Anderso N-ACETAM 00:00: n INOPHEN 00 Propoxyp Propensi Active Rash Method i hene ty to 09-15 st N-Acetam adverse 00:00: Hospita inophen reaction 00 l s to drug Celecoxi Propensi Active Rash Bleeding Meth axel b ty to 09-15 st adverse 00:00: Hospita reaction 00 l s to drug Ciproflo Propensi Active GI Nausea Method i xacin ty to Intolerance 09-15 adverse 00:00: Hospita reaction 00 l s to drug Hydrocod Propensi Active Rash Method i one ty to 09-15 adverse 00:00: Hospita reaction 00 l s to drug ciproflo DA Active [facility] xacin 8-08 [place] HCl 00:00: d 00 [facility] ciproflo DA Active [facility] xacin 8-08 [place] 00:00: d 00 [facility] celecoxi DA Active [place] [facility] b 8-08 [place] 00:00: d 00 [facility] HYDROCET DA Active U DONT [facility] REMEMBER 8 [place] 00:00: d 00 [facility] ciproflo DA Active U TOLD HER [facility] xacin 8-08 [place] HCl 00:00: d 00 [facility] ciproflo DA Active U [facility] TOLD [facility] xacin 8-08 [place] 00:00: d 00 [facility] celecoxi DA Active MO [facility] b 8-08 [place] [facility]: [facility] Social History Social Habit Start Date Stop Date Quantity Comments Source Gender identity [facility] Alcohol intake 2022-05-28 2022-05-28 Current drinker [facility] 00:00:00 00:00:00 of alcohol Hospital (finding) History of Social 2022-05-28 2022-05-[address] function 00:00:00 00:00:00 Hospital Tobacco use and 2022-05-28 2022-05-28 Smokeless [facility] 00:00:00 00:00:00 tobacco non-user [facility] Sex [facility] [birth year] [facility] Smoking Status Start Date Stop Date Source Never smoked tobacco [facility] Medications Ordered Filled Start Stop Current Ordering Indication Dosage Frequency Signature Comments Components Source Medication Medication Date Date Medication? Clinician (SIG) Name Name ascorbic 2021-08 Yes 100mg Take 1 [facility] acid, 0-[address] vitamin C, 13:10: (100 mg [facility] (VITAMIN C) 29 total) by l 100 MG mouth. tablet levothyroxi 2021-08 Yes 112ug QD Take 1 [facility] h[facility] ne 0-[address] (SYNTHROID) 13:10: (112 mcg [facility] 112 mcg 29 total) by l tablet mouth daily. co-enzyme 2021-08 Yes 100mg Take 3 [facility] di Q-10 30 mg 0-[address] capsule 13:10: (90 mg Hospita 29 total) by l mouth. ascorbic 2021-08 Yes 100mg Take 1 Method i acid, 0-[address] vitamin C, 13:10: (100 mg [facility]osp [facility]leen (VITAMIN C) 29 total) by l 100 MG mouth. tablet levothyroxi 2021-08 Yes 112ug QD Take 1 Met hodi ne 0-[address] (SYNTHROID) 13:10: (112 mcg Ho spita 112 mcg 29 total) by l tablet mouth daily. co-enzyme 2021-08 Yes 100mg Take 3 Metho di Q-10 30 mg 0-[address] capsule 13:10: (90 mg Hospita 29 total) by l mouth. estradioL Yes Method[facility] (ESTRACE) 2 9-22 st MG tablet 00:00: Hospita 00 l estradioL Yes [facility] (ESTRACE) 2 9-22 st MG tablet 00:00: Hospita 00 l Oracea 40 Yes [facility] mg capsule 9-16 st 00:00: Hospita 00 l Oracea 40 0 Yes [facility] mg capsule 9-16 st 00:00: Hospita 00 l biotin 2021-0 3- No 1000ug Chew 1,000 Me thodi 1,000 mcg 8- 08-[address] tablet,chew 00:00: 04:59 Hospi ta able 00 :00 l cyanocobala 2021-0 2022- No 500ug Take 1 Me thodi min 04-[address] (VITAMIN 00:00: 04:59 (500 mcg [facility]osp [facility] B-12) 500 00 :00 total) by l MCG tablet mouth. fexofenadin 2021-0 2022- No 180mg Take 1 Me thodi e (ROSS) 04-[address] 180 MG 00:00: 04:59 (180 mg Hospita tablet 00 :00 total) by l mouth. biotin 2021-0 202- No 1000ug Chew 1,000 Me thodi 1,000 mcg 04-[address] tablet,chew 00:00: 04:59 Hospi ta able 00 :00 l cyanocobala 2021-0 2022- No 500ug Take 1 Me thodi min 04-[address] (VITAMIN 00:00: 04:59 (500 mcg Hosp coleen B-12) 500 00 :00 total) by l MCG tablet mouth. fexofenadin 0 2022- No 180mg Take 1 Me thodi e (ROSS) 04-[address] 180 MG 00:00: 04:59 (180 mg Hospita tablet 00 :00 total) by l mouth. polyethylen Yes Use as Meth axel e 4-[address] glycol-elec 00:00: by Hospit a trolytes 00 ordering l (NULYTELY) provider. 420 gram solution polyethylen Yes Use as Meth axel e 4-[address] glycol-elec 00:00: by Hospit a trolytes 00 ordering l (NULYTELY) provider. 420 gram solution metFORMIN Yes 500mg Take 1 Metho di (GLUMETZA) 3-[address] 500 mg 24 00:00: (500 mg Hospi ta hr tablet 00 total) by l mouth. metFORMIN 0 Yes 500mg Take 1 Metho di (GLUMETZA) 3-[address] 500 mg 24 00:00: (500 mg Hospi ta hr tablet 00 total) by l mouth. liothyronin Yes Take by Met hodi e (CYTOMEL) 2-[address] 5 MCG 00:00: Hospita tablet 00 l liothyronin Yes Take by Met hodi e (CYTOMEL) 2-[address] 5 MCG 00:00: Hospita tablet 00 l testosteron 2018-08 Yes 1{appli Apply 1 Methodi e 1.62 % 0-03 cation} applicatio st (20.25 00:00: n Hospita mg/1.25 00 topically. l gram) gel in packet test2018-08 Yes Apply 1 Met hodi e 1.62 % 0-[address] (20.25 00:00: n Hospita mg/1.25 00 topically. l gram) gel in packet Vital Signs Vital Name Observation Time Observation Value Comments Source WEIGHT 2020-06-20 13:27:00 57.9 kg Systolic blood 2022-05-28 18:08:00 144 mm[Hg] [facility] pressure Diastolic blood 2022-05-28 18:08:00 84 mm[Hg] [facility] Hospital pressure Heart rate 2022-05-28 18:08:00 80 /min [facility] Body height 2022-05-28 18:08:00 152.4 cm [facility] Body weight 2022-05-28 18:08:00 63.504 kg [facility] BMI 2022-05-28 18:08:00 27.34 kg/m2 [facility] Procedures This patient has no known procedures. Plan of Care Planned Activity Planned Date Details Comments Source Future Scheduled 2023-01-19 Screening for [facility] Test 23:03:59 malignant neoplasm of colon (procedure) [code = 672513897] Future Scheduled 2023-01-19 Scre[facility] Test 23:03:59 malignant neoplasm of colon (procedure) [code = 090251431] Future Scheduled 2023-01-19 Scre[facility] Test 23:03:59 malignant neoplasm of colon (procedure) [code = 973702683] Future Scheduled 2023-01-19 COVID-19 VACCINE (#1) [facility] Test 23:03:59 [code = COVID-19 VACCINE (#1)] Future Scheduled 2023-01-19 Hepatitis C screening [facility] Test 23:03:59 (procedure) [code = 045956531] Future Scheduled 2023-01-19 Screening for [facility] Test 23:03:59 malignant neoplasm of cervix (procedure) [code = 789250651] Future Scheduled 2023-01-19 BREAST CANCER [facility] Test 23:03:59 SCREENING [code = BREAST CANCER SCREENING] Future Scheduled 2023-01-19 Screening for [facility] Test 23:03:59 malignant neoplasm of colon (procedure) [code = 060708670] Future Scheduled 2023-01-19 Screening for [facility] Test 23:03:59 malignant neoplasm of colon (procedure) [code = 969896044] Future Scheduled 2023-01-19 INFLUENZA VACCINE [facility] 23:03:59 [code = INFLUENZA VACCINE] Future Scheduled 2022-10-16 COVID-19 VACCINE (#1) [facility] Test 20:39:50 [code = COVID-19 VACCINE (#1)] Future Scheduled 2022-10-16 Hepatitis C screening [facility] Test 20:39:50 (procedure) [code = 580313939] Future Scheduled 2022-10-16 Screening for [facility] Test 20:39:50 malignant neoplasm of cervix (procedure) [code = 084984443] Future Scheduled 2022-10-16 BREAST CANCER [facility] Test 20:39:50 SCREENING [code = BREAST CANCER SCREENING] Future Scheduled 2022-10-16 COLONOSCOPY SCREENING [facility] Test 20:39:50 [code = COLONOSCOPY SCREENING] Future Scheduled 2022-10-16 INFLUENZA VACCINE [facility] Test 20:39:50 [code = INFLUENZA VACCINE] Encounters Start End Encounter Admission Attending Care Care Encounter Source Date/Time Date/Time Type Type Clinicians Facility Department ID 2021-09-13 Outpatient MDA MDA [id number] 17:48:13 Anderso n 2021-09-13 Outpatient MDA MDA [id number] 17:48:13 Anderso n 2021-09-13 Outpatient MDA MDA [id number] 17:48:13 Anderso n 2021-09-13 Outpatient MDA MDA [id number] 17:48:12 Anderso n 2021-09-13 Outpatient MDA MDA [id number] 17:31:50 Anderso n 2021-09-13 Outpatient MDA MDA [id number] 17:27:40 Anderso n 2021-09-13 Outpatient MDA MDA [id number] 17:21:51 Anderso n 2022-12-05 2022-12-05 Outpatient EL [place]AG[place] MDA Jason/Hep/Nu [id number] 08:31:00 12:45:00 hardy IQBAL Gera so TRAVIS n 2022-12-04 2022-12-04 Outpatient EL MDA MDA [id number] 08:32:10 08:32:10 Deniz o n 2022-05-28 2022-05-28 Office Moises Cruz 1.2.840.1 [id number] [facility] 13:15:00 13:45:[address] 3.430.2.7 Hospit a .3.728198 l .8 2022-05-28 2022-05-28 Office Moises Cruz 1.2.840.1 [id number] [facility] 13:15:00 13:45:[address] 3.430.2.7 Hospit a .3.530486 l .8 2022-05-28 2022-05-28 Travel 1.2.840.1 [id number] [id number] [facility] 00:00:00 00:00:[address] 3.430.2.7 0.2.7.3.698 Ho spita .3.530699 084.8 l .8 2022-05-28 2022-05-28 Travel 1.2.840.1 1.2.841.942 [id number] [facility] 00:00:00 00:00:[address] 3.430.2.7 0.2.7.3.698 Ho spita .3.688768 084.8 l .8 2022-05-01 2022-05-01 Outpatient [facility] [id number] [facility] 12:00:00 12:00:00 Jarrett Jon [facility] 2021-11-16 2021-11-16 Outpatient EL BULLARD, MDA Jason/Hep/Nu [id number] 08:55:00 12:40:00 VINCE lilly 2021-11-15 2021-11-15 Outpatient EL BULLARD, MDA MDA [id number] 08:35:38 08:35:38 VINCE lilly 2021-11-14 2021-11-14 Outpatient EL BULLARD, MDA MDA [id number] 12:07:44 12:15:05 VINCE lilly 2021-10-22 2021-10-22 Outpatient EL Luis M, HCAPM ELIZABET [id number] [facility] 12:00:00 12:00:00 Jarrett 58 [facility] 2021-06-02 2021-06-02 Outpatient EL Luis M, HCAPM ELIZABET [id number] [facility] 12:00:00 12:00:00 Jarrett Anabelle [facility] 2020-06-20 2020-06-20 Outpatient EL BULLARD, MDA Jason/Hep/Nu [id number] 13:02:00 15:51:00 VINCE lilly 2020-06-17 2020-06-17 Outpatient EL BULLARD, MDA MDA [id number] 11:28:11 11:28:11 VINCE lilly 2020-05-11 2020-05-11 Outpatient EL Luis M, HCAPM ELIZABET [id number] [facility] 12:00:00 12:00:00 Jarrett 00 [facility] Results This patient has no known results.
[2023-01-20] MEDS ORDERED: MORPHINE 2 MG/ML SYR ONE (00:37)
[2023-01-20] MEDS ORDERED: KETOROLAC 30 MG/ML INJ ONE (00:38)
[2023-01-20 00:49] LABS: Absolute Lymphocytes (CBC) 2.8 K/uL (0.7-4.9); Hematocrit 38.3 % (36.0-45.0); Lymphocytes % 21.9 % (15.3-44.8); MCV 91.4 fL (80-100); MPV 7.4 fL (7.6-11.3); RBC Red Blood Cell Count 4.19 M/uL (3.86-4.86)
[2023-01-20 01:01] LABS: ALT/SGPT 21 U/L (13-56); AST/SGOT 10 U/L (15-37); Albumin 3.2 g/dL (3.4-5.0); Alkaline Phosphatase 92 U/L (45-117); BUN Blood Urea Nitrogen 13 mg/dL (7-18); Bicarbonate 28 mEq/L (21-32); Bilirubin Total 0.2 mg/dL (0.2-1.0); Glomerular Filtration Rate 98 ml/min (=/>90); Glucose Level 113 mg/dL (74-106); Potassium 3.2 mEq/L (3.5-5.1); Protein, Total 7.3 g/dL (6.4-8.2); Sodium Level 139 mEq/L (136-145)
[2023-01-20 01:06] LABS: Specific Gravity > 1.030 (1.005-1.030); Troponin High Sensitivity < 3.0 pg/mL (<58.9); Urine Bacteria None Seen /HPF (<20); Urine Bilirubin NEGATIVE (Negative); Urine Blood Negative (Negative); Urine Clarity Clear (Clear); Urine Color Yellow (Yellow); Urine Glucose NEGATIVE (Negative); Urine Mucus 3+ /HPF (None Seen); Urine Protein TRACE (Negative); Urine RBC <5 /HPF (None Seen); Urine Urobilinogen Normal (Normal)
--- NOTE | 2023-01-20 03:30 | ER ---
Nurse's Notes [facility] Name: Catalina hWitehead Age: 47 yrs Sex: Female : 1975 Arrival Date: 01/19/2023 Time: 23:12 Bed 14 Private MD: Diagnosis: Low back pain Presentation: 01/19 23:20 Chief complaint: Patient states: right flank pain of 10 that radiates to RUQ and right pf1 shoulder/back,onset at 1000 this AM. patient denies any N/V/d. 23:20 Coronavirus screen: Vaccine status: Patient reports receiving the 2nd dose of the covid pf1 vaccine. Jebbit Client denies travel out of the [place] in the last 14 days. At this time, the client does not indicate any symptoms associated with coronavirus-19. Ebola Screen: Patient negative for fever greater than or equal to 101.5 degrees Fahrenheit, and additional compatible Ebola Virus Disease symptoms. Initial Sepsis Screen: Does the patient meet any 2 criteria? No. Patient's initial sepsis screen is negative. Does the patient have a suspected source of infection? No. Patient's initial sepsis screen is negative. Risk Assessment: Do you want to hurt yourself or someone else? Patient reports no desire to harm self or others. 23:20 Method Of Arrival: Ambulatory pf1 23:20 Acuity: DEBBIE 3 pf1 Screenin:20 [facility] ED Fall Risk Assessment (Adult) History of falling in the last 3 months, pf1 including since admission No falls in past 3 months (0 pts) Confusion or Disorientation No (0 pts) Intoxicated or Sedated No (0 pts) Impaired Gait No (0 pts) Mobility Assist Device Used No (0 pt) Altered Elimination No (0 pt) Score/Fall Risk Level 0 - 2 = Low Risk Oriented to surroundings, Maintained a safe environment, Educated pt \T\ family on fall prevention, incl call for assistance when getting out of bed, Assessed \T\ reinforced patient's understanding of fall precautions, Provided non-skid footwear, Hourly rounding (assess needs \T\ fall precautionary measures) done, Used ambulatory aids as needed (educated on \T\ assisted with), Used gait belt as appropriate. 23:20 Abuse screen: Denies threats or abuse. Nutritional screening: No deficits noted. pf1 Tuberculosis screening: No symptoms or risk factors identified. Assessment: 23:20 General: Appears in no apparent distress. uncomfortable, well groomed, well developed, pf1 Behavior is calm, cooperative, appropriate for age, quiet. 23:20 Pain: Complains of pain in right flank pain that radiates to RUQ and right pf1 shoudler/back pain,onset 2 days with mild SOB due to pain Pain currently is 10 out of 10 on a pain scale. Neuro: No deficits noted. Level of Consciousness is awake, alert, obeys commands, Oriented to person, place, time, situation. Cardiovascular: Capillary refill < 3 seconds Patient's skin is warm and dry. Respiratory: Reports shortness of breath at rest with pain Airway is patent Trachea midline Respiratory effort is even, unlabored, Respiratory pattern is regular, symmetrical, Breath sounds are clear bilaterally. GI: No deficits noted. No signs and/or symptoms were reported involving the gastrointestinal system. GI: No deficits noted. Abdomen is flat, non-distended, Bowel sounds present X 4 quads. Reports upper abdominal pain, with right flank pain. : No signs and/or symptoms were reported regarding the genitourinary system. EENT: No deficits noted. No signs and/or symptoms were reported regarding the EENT system. Derm: No deficits noted. No signs and/or symptoms reported regarding the dermatologic system. 01/20 00:20 Reassessment: Patient appears in no apparent distress at this time. Patient and/or pf1 family updated on plan of care and expected duration. Pain level reassessed. Patient is alert, oriented x 3, equal unlabored respirations, skin warm/dry/pink. Patient states symptoms have improved. 01:30 Reassessment: Patient appears in no apparent distress at this time. Patient and/or pf1 family updated on plan of care and expected duration. Pain level reassessed. Patient is alert, oriented x 3, equal unlabored respirations, skin warm/dry/pink. Patient states feeling better. Patient states symptoms have improved. 02:30 Reassessment: Patient appears in no apparent distress at this time. Patient and/or pf1 family updated on plan of care and expected duration. Pain level reassessed. Patient is alert, oriented x 3, equal unlabored respirations, skin warm/dry/pink. Patient states feeling better. Patient states symptoms have improved. Vital Signs: 01/19 23:20 BP 114 / 69; Pulse 84; Resp 18; Temp 98.9; Pulse Ox 99% on R/A; Weight 60.78 kg; Height pf1 5 ft. 0 in. ; Pain 10; 01/20 00:30 BP 118 / 76; Pulse 71; Resp 16; Pulse Ox 97% on R/A; Pain 4/10; pf1 01:30 BP 112 / 62; Pulse 73; Resp 18; Pulse Ox 97% on R/A; pf1 02:30 BP 110 / 61; Pulse 72; Resp 19; Pulse Ox 97% on R/A; pf1 03:46 BP 115 / 60; kl 01/19 23:20 Body Mass Index 26.17 (60.78 kg, 152.4 cm) pf1 01/19 23:20 Pain Scale: Adult pf1 01/20 00:30 Pain Scale: Adult pf1 ED Course: 01/19 23:16 Patient arrived in ED. es 23:20 Patient has correct armband on for positive identification. Placed in gown. Bed in low pf1 position. Call light in reach. 23:32 Jesus Alonzo MD is Attending Physician. bs3 01/20 00:10 Rocio Aparicio RN is Primary Nurse. pf1 00:27 Urinalysis w/ reflexes Sent. bc6 00:27 CBC with Diff Sent. bc6 00:27 Troponin HS Sent. bc6 00:27 Inserted saline lock: 22 gauge in right antecubital area, using aseptic technique. bc6 01:12 XRAY Chest (1 view) In Process Unspecified. EDMS 01:55 Triage completed. pf1 02:38 CT Aorta for Dissection In Process Unspecified. EDMS 03:45 No provider procedures requiring assistance completed. IV discontinued, intact, kl bleeding controlled, No redness/swelling at site. Pressure dressing applied. Administered Medications: 00:40 Drug: Ketorolac IVP 15 mg Route: IVP; Site: right antecubital; pf1 01:40 Follow up: Response: No adverse reaction; Marked relief of symptoms; Pain is decreased pf1 00:40 Drug: morphine IVP or IV 2 mg Route: IVP; Infused Over: 4 mins; Site: right antecubital;pf1 01:40 Follow up: Response: No adverse reaction; Marked relief of symptoms; Pain is decreased; pf1 RASS: Alert and Calm (0) Outcome: 03:30 Discharge ordered by MD. hurst 03:45 Discharged to home ambulatory, with family. bola 03:45 Condition: improved 03:45 Discharge instructions given to patient, Instructed on discharge instructions, follow up and referral plans. medication usage, Demonstrated understanding of instructions, follow-up care, medications, Prescriptions given X 2. 03:46 Patient left the ED. Signatures: Dispatcher [employer] Caro Baker RN RN bola Ron, Jesus Phan MD MD bs3 Rocio Aparicio RN RN pf1 Danielle Bardales [facility]
--- NOTE | 2023-01-20 03:31 | EDPHYS ---
Physician Documentation [facility] Name: Catalina Whitehead Age: 47 yrs Sex: Female : 1975 Arrival Date: 01/19/2023 Time: 23:12 Bed 14 Private MD: ED Physician Jesus Alonzo HPI: 01/20 01:24 This 47 yrs old Female presents to ER via Unassigned with complaints of bs3 Breathing Difficulty, Back Pain. 01:24 47-year-old no past medical history presents with back pain today it is a sharp pain bs3 that she has never had before she feels like sometimes it goes into her abdomen nothing seems to make it better or worse although laying down makes it worse no associated shortness of breath no cough no abdominal pain no nausea no vomiting she tried tyyi-lpt-hicwymz medicine without relief. ROS: 01:34 Constitutional: Negative for fever, chills bs3 01:34 All other systems are negative. Exam: 01:34 Constitutional: This is a well developed, well nourished patient who is awake, alert, bs3 and in mild distress Head/Face: Normocephalic, atraumatic. Eyes: Pupils equal round and reactive to light, extra-ocular motions intact. Lids and lashes normal. ENT: mmm, no posterior phyarngeal erythema Neck: Trachea midline, no thyromegaly, no neck stiffness Chest/axilla: Normal chest wall appearance and motion. Nontender with no deformity. No lesions are appreciated. Cardiovascular: Regular rate and rhythm with a normal S1 and S2. symmetric pulses in upper extremities Respiratory: Lungs have equal breath sounds bilaterally, clear to auscultation, no respiratory distress Abdomen/GI: Soft, non-tender, no rebound or guarding Back: No spinal tenderness. No costovertebral tenderness. Full range of motion. Skin: Warm, dry with normal turgor. Normal color with no rashes, no lesions, and no evidence of cellulitis. MS/ Extremity: Pulses equal, no cyanosis. Neurovascular intact. Full, normal range of motion. Neuro: Awake and alert, GCS 15, oriented to person, place, time, and situation. Cranial nerves II-XII grossly intact. Motor strength 5/5 in all extremities. Sensory grossly intact. Vital Signs: 01/19 23:20 BP 114 / 69; Pulse 84; Resp 18; Temp 98.9; Pulse Ox 99% on R/A; Weight 60.78 kg; Height pf1 5 ft. 0 in. ; Pain 10; 01/20 00:30 BP 118 / 76; Pulse 71; Resp 16; Pulse Ox 97% on R/A; Pain 4/10; pf1 01:30 BP 112 / 62; Pulse 73; Resp 18; Pulse Ox 97% on R/A; pf1 02:30 BP 110 / 61; Pulse 72; Resp 19; Pulse Ox 97% on R/A; pf1 03:46 BP 115 / 60; kl 01/19 23:20 Body Mass Index 26.17 (60.78 kg, 152.4 cm) pf1 01/19 23:20 Pain Scale: Adult pf1 01/20 00:30 Pain Scale: Adult pf1 MDM: 01/19 23:32 Patient medically screened. 3 01/20 01:34 Differential diagnosis: Anemia Anxiety Reaction asthma, Pneumothorax reactive airway bs3 disease, Unstable Angina aortic dissection, kidney stone. Data reviewed: vital signs, nurses notes. 01:34 ED course: Work-up negative for acute pathology patient states on reassessment that her bs3 pain is improved but still is moderate pain given the location we had a shared decision-making conversation and patient wanted to make sure that there is nothing else going on therefore will rule out aortic dissection. 02:08 ED course: EKG is normal sinus rhythm at [address] elevation or depression QTc 483 as bs3 interpreted by. 03:30 ED course: Work-up completely nondiagnostic for etiology of the patient's symptoms bs3 advised outpatient follow-up possible musculoskeletal return precautions. 01/19 23:39 Order name: CBC with Diff; Complete Time: 01:24 3 01/19 23:39 Order name: Troponin HS; Complete Time: 01:24 3 01/19 23:39 Order name: Comprehensive Metabolic Panel; Complete Time: 01:24 3 01/19 23:40 Order name: Urinalysis w/ reflexes; Complete Time: 01:24 3 01/19 23:39 Order name: XRAY Chest (1 view) 3 01/20 01:31 Order name: CT Aorta for Dissection 3 01/19 23:39 Order name: EKG; Complete Time: 23:40 bs3 01/19 23:39 Order name: Cardiac monitoring; Complete Time: 00: bs3 01/19 23:39 Order name: EKG - Nurse/Tech; Complete Time: : bs3 01/19 23:39 Order name: IV Saline Lock; Complete Time: 00 bs3 01/19 23:39 Order name: Labs collected and sent; Complete Time: 00: bs3 01/19 23:39 Order name: O2 Per Protocol; Complete Time: bs3 01/19 23:39 Order name: O2 Sat Monitoring; Complete Time: : bs3 Administered Medications: 00:40 Drug: Ketorolac IVP 15 mg Route: IVP; Site: right antecubital; pf1 01:40 Follow up: Response: No adverse reaction; Marked relief of symptoms; Pain is decreased pf1 00:40 Drug: morphine IVP or IV 2 mg Route: IVP; Infused Over: 4 mins; Site: right antecubital;pf1 01:40 Follow up: Response: No adverse reaction; Marked relief of symptoms; Pain is decreased; pf1 RASS: Alert and Calm (0) Disposition Summary: 01/20/23 03:30 Discharge Ordered Location: Home bs3 Problem: new bs3 Symptoms: have improved bs3 Condition: Stable bs3 Diagnosis - Low back pain bs3 Followup: bs3 - With: Private Physician - When: 1 week - Reason: Re-evaluation by your physician Discharge Instructions: - Discharge Summary Sheet bs3 - Acute Back Pain, Adult bs3 Forms: - Medication Reconciliation Form bs3 - Thank You Letter bs3 - Antibiotic Education bs3 - Prescription Opioid Use bs3 Prescriptions: - Naprosyn 500 mg Oral Tablet - take 1 tablet by ORAL route 2 times per day take with food; 14 tablet; Refills: bs3 0, Product Selection Permitted - Cyclobenzaprine 10 mg Oral Tablet - take 1 tablet by ORAL route every 8 hours As needed; 15 tablet; Refills: 0, bs3 Product Selection Permitted Signatures: Dispatcher [employer] Jesus Pan MD MD bs3 Rocio Aparicio RN RN pf1
[2023-01-20 04:04] VITALS: TEMP 98.9
[2023-01-20 04:09] VITALS: O2SAT 97
[2023-01-20 04:21] VITALS: BP 115/60
--- NOTE | 2023-01-20 12:02 | EKG ---
Test Date: 2023-01-20 Test Time: 00:22:43 [employer] Technician: ADRYAN MEASUREMENT RESULTS: Intervals: Rate: 79 DC: 182 QRSD: 84 QT: 380 QTc: 435 Fertile: P: 49 DC: 182 QRS: 49 T: 39 INTERPRETIVE STATEMENTS: Normal sinus rhythm Normal ECG No previous ECG available for comparison Electronically Signed On 01-20-23 12:00:20 CDT by John Ruffin
--- NOTE | 2023-01-20 13:45 | RAD REPORT ---
EXAM DESCRIPTION: Chest Single View 01/20/2023 1:14 AM CDT CLINICAL HISTORY: 47 years, Female, Dyspnea;SOB COMPARISON: None. FINDINGS: Single view of the chest was obtained portable. No prior films are available for compariso n. The lung volume is slightly decreased. The cardiomediastinal silhouette demonstrate to be unremark able. The heart is not enlarged. The thoracic aorta is unremarkable. The pulmonary vasculature is nor mal distribution. Costophrenic angles are sharp. No areas of consolidation or masses are seen. Th e rest of the soft tissue and bony structures demonstrate to be unremarkable. IMPRESSION: No acute cardiopulmonary process identified. Electronically signed by: Hunter Irby MD 01/20/2023 1:14 AM CDT Due to temporary technical issues with the PACS/Fluency reporting system, reports are being signed by the in house radiologist without review as a courtesy to ensure prompt reporting. The interpreting r adiologist is fully responsible for the content of the report.
--- NOTE | 2023-01-20 13:46 | RAD REPORT ---
EXAM DESCRIPTION: Angio Aorta For Dissection 01/20/2023 2:56 AM CDT CLINICAL HISTORY: 47 years, Female, DISSECTION COMPARISON: None. TECHNIQUE: Multiple transaxial tomograms of the thoracic and abdominal aorta from the lung apex to t he ischial tuberosities utilizing 3 mm slice thickness at 3 mm interval reconstruction after the admi nistration of large bolus of IV contrast for complete opacification of the thoracic, abdominal aorta and iliac arteries. 2-D and 3-D multiplanar reformats, volume rendering technique and maximum intensity projection images were generated and reviewed. This exam was performed according to our departmental dose-optimization protocol, which includes auto mated exposure control, adjustment of the mA and/or kV according to patient size and/or use of iterat guy reconstruction technique. FINDINGS: Thoracic aorta: The thoracic aorta demonstrate to be within normal limits. There is no evidence for dissection/or ane urysm. There is normal branching pattern of the great vessels with no evidence for significant stenos is/or occlusion within the proximal vessels. Abdominal aorta: The abdominal aorta demonstrate to be within normal limits. There is no evidence for aneurysm/or diss ection. Both iliac arteries demonstrate to be patent. No evidence for significant stenosis/or occlusion. Visceral branches demonstrate to be patent with no evidence for stenosis/or occlusion. There are sing le bilateral renal arteries with no significant abnormalities. Chest: The lung parenchyma demonstrate to be clear. No significant pulmonary nodules and/or masses. Minimal dependent atelectatic changes lung bases with mild elevation of the right hemidiaphragm. The trachea mainstem bronchus demonstrate to be unremarkable. There is no pleural/or pericardial effu sions. The heart is normal in size. No coronary artery calcifications. The central portions of the pulmonary arteries demonstrate normal opacification with no evidence for significant filling defects that will suggest pulmonary embolus. There is no significant mediastinal and/or hilar lymphadenopathy. The axi llary regions demonstrate to be clear. The bone windows demonstrate no significant skeletal lesions. Abdomen and pelvis: The liver demonstrate marked decreased attenuation. Otherwise the liver, gallbladder, spleen, adrenal glands, pancreas demonstrate to be unremarkable. The kidneys demonstrate normal uptake of contrast media. There is no evidence for hydronephrosis/or n ephrolithiasis. There are parapelvic left lower renal cysts measuring approximately 1.6 cm on axial i mage 93-95. The unopacified stomach and small bowel demonstrate to be within normal limits. There is status post subtotal colectomy with anastomosis along the sigmoid colon. Slight prominence of small bowel loops w ithin the right lower quadrant with no evidence for significant transition point. The urinary bladder is normal. The uterus is absent. No adnexal masses are seen. There is no retrop eritoneal lymphadenopathy. There is no evidence for ascites. The bone windows demonstrate to unremark able. IMPRESSION: No evidence for thoracic or abdominal aortic aneurysm or dissection. No evidence for significant pulmonary embolus. Marked fatty infiltration of the liver. 1.6 cm left Bosniak 1 benign simple cyst. No follow-up imaging is recommended. Radiology 2019; [id number], Bosniak Classification of Cystic Renal Masses, Version 2019. Status post subtotal colectomy with anastomosis along the sigmoid colon. Slight prominence of small bowel loops within the right lower quadrant with no evidence for significa nt transition point findings are nonspecific possibility of a enteritis/or ileus could be of consider ation. Electronically signed by: Hunter Irby MD 01/20/2023 3:03 AM CDT Due to temporary technical issues with the PACS/Fluency reporting system, reports are being signed by the in house radiologist without review as a courtesy to ensure prompt reporting. The interpreting r adiologist is fully responsible for the content of the report.
== END 2023-01-20 03:46 | disposition home or self-care (01) ==
LOC: ER 23:12
DX: M54.50 Low back pain, unspecified (principal)
CPT/HCPCS: 93005; 85025; 81001; 36415; 84484; 80053; 71275; 74175; 71045; 96375; 96374; 99284; Q9967; J2270